=== PATIENT | male | born 1940 | race Caucasian/White ===

== ENCOUNTER 2018-10-07 09:32 | Emergency (ER) | payer MEDICARE, OTHER ==
[2018-10-07] MEDS ORDERED: Dexamethasone 4 MG/ML SDV PO ONE ×2 (11:04→11:20)
[2018-10-07] MEDS ORDERED: diphenhydrAMINE 25 MG Cap PO ONE (11:05)
--- NOTE | 2018-10-07 11:10 | EDM.PDOC ---
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 Has not taken any medications for his symptoms. Does have epi pens available if needed. Did not have Benadryl at home. Onset: Today, Sudden - Related Data Allergies Allergy/AdvReac Type Severity Reaction Status Date / Time No Known Allergies Allergy Verified 10/07/18 09:54 Home Meds: Home Meds Lisinopril/Hydrochlorothiazide [Lisinopril-Hctz 20-12.5 mg Tab] 10/07/18 [ History] Rosuvastatin [Crestor] 10/07/18 [History] Tamsulosin HCl [Flomax] 10/07/18 [History] Past Medical History Dermatologic History: Reports: Benign Melanoma - Past Surgical History Musculoskeletal Surgical History: Reports: Hip Replacement Social & Family History - Tobacco Use Smoking Status *Q: Never Smoker ED ROS GENERAL - Review of Systems Review Of Systems: ROS reveals no pertinent complaints other than HPI. ED EXAM, ANIMAL BITE - Physical Exam Exam: See Below Exam Limited By: No Limitations General Appearance: Alert, WD/WN, No Apparent Distress Head: Atraumatic Neck: Normal Inspection Respiratory/Chest: No Respiratory Distress, Lungs Clear, Normal Breath Sounds. 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 Patient given a dose of Benadryl and Decadron here, ongoing supportive care at home discussed as well as when to use the epi pen which he certainly does not meet criteria for here. Reasons to return to the ED discussed, patient agreeable and discharged in stable condition with his driving. - Orders/Labs/Meds Orders: Active Orders 24 hr Category Date Time Status dexAMETHasone [Dexamethasone] Med 10/07/18 11:04 Once 10 mg PO ONETIME ONE diphenhydrAMINE [Benadryl] Med 10/07/18 11:05 Once 25 mg PO ONETIME ONE Departure - Departure Time of Disposition: 11:30 Disposition: Home, Self-Care 01 Condition: Good Clinical Impression: Insect bite of finger with local reaction Qualifiers: Encounter type: initial encounter Qualified Code(s): S60.469A - Insect bite ( nonvenomous) of unspecified finger, initial encounter; W57.XXXA - Bitten or stung by nonvenomous insect and other nonvenomous arthropods, initial encounter - Discharge Information Instructions: Insect Bite, Adult, [id number] Referrals: PCP,None [Primary Care Provider] - Additional Instructions: This appears to be a local reaction, burr picker some Benadryl, you can take 25 mg every 4-6 hours as needed, Claritin or Zyrtec daily for 5 days. Tylenol for pain. Ice to finger, keep elevated. Return with any worsening symptoms or concerns. - My Orders Last 24 Hours: My Active Orders 10/07/18 11:04 dexAMETHasone [Dexamethasone] 10 mg PO ONETIME ONE 10/07/18 11:05 diphenhydrAMINE [Benadryl] 25 mg PO ONETIME ONE - Assessment/Plan Last 24 Hours: My Active Orders 10/07/18 11:04 dexAMETHasone [Dexamethasone] 10 mg PO ONETIME ONE 10/07/18 11:05 diphenhydrAMINE [Benadryl] 25 mg PO ONETIME ONE
== END 2018-10-07 11:48 | disposition home or self-care (01) ==
LOC: JP.ED 09:32
DX: S60.460A Insect bite (nonvenomous) of right index finger, initial encounter (principal); Z79.899 Other long term (current) drug therapy; W57.XXXA Bitten or stung by nonvenomous insect and other nonvenomous arthropods, initial encounter
CPT/HCPCS: 99282; A9270; J1100; 99283

== ENCOUNTER 2020-10-02 12:55 | Emergency (ER) | payer MEDICARE, OTHER ==
[2020-10-02] MEDS ORDERED: diphenhydrAMINE 50 MG/ML SDV IVPUSH ONE (13:44)
[2020-10-02] MEDS ORDERED: methylPREDNISolone Sodium Succinate 125 MG/2 ML SDV IVPUSH ONE (13:44)
--- NOTE | 2020-10-02 14:10 | EDM.PDOC ---
ED HPI GENERAL MEDICAL PROBLEM - General Chief Complaint: Allergic Reaction Stated Complaint: BEE STING-ALLERGIC Time Seen by Provider: 10/02/20 13:25 Source of Information: Reports: Patient, Family History Limitations: Reports: No Limitations - History of Present Illness INITIAL COMMENTS - FREE TEXT/NARRATIVE: 80-year-old male got stung by a bee on his finger, and shortly after started developing some itching on both his palms and he felt like he was developing some itching on the anterior aspect of his scalp. About 15 minutes later he felt symptoms around his waist. No shortness of breath or cough, no headache, and but he has had a serious reaction to bee stings in the past. Denies nausea or vomiting. Onset: Sudden Duration: Hour(s): (45 minutes ago) Location: Reports: Upper Extremity, Left, Upper Extremity, Right Improves with: Reports: None Associated Symptoms: Reports: Malaise. Denies: Chest Pain, Cough, Fever/Chills, Headaches, Shortness of Breath - Related Data Allergies Allergy/AdvReac Type Severity Reaction Status Date / Time No Known Allergies Allergy Verified 10/07/18 09:54 Home Meds: Home Meds Lisinopril/Hydrochlorothiazide [Lisinopril-Hctz 20-12.5 mg Tab] 1 tab PO DAILY 10/07/18 [History] Rosuvastatin [Crestor] 10 mg PO DAILY 10/07/18 [History] Tamsulosin HCl [Flomax] 0.4 mg PO DAILY 10/07/18 [History] Niacinamide [Niacin] 500 mg PO BID 10/02/20 [History] Past Medical History HEENT History: Reports: Impaired Vision Dermatologic History: Reports: Benign Melanoma - Infectious Disease History Infectious Disease History: Reports: Chicken Pox, Measles, Mumps - Past Surgical History GI Surgical History: Reports: Cholecystectomy Musculoskeletal Surgical History: Reports: Hip Replacement Social & Family History - Tobacco Use Tobacco Use Status *Q: Never Tobacco User - Caffeine Use Caffeine Use: Reports: Coffee - Recreational Drug Use Recreational Drug Use: No ED ROS ALLERGIC REACTION - Review of Systems Review Of Systems: See Below Constitutional: Reports: Malaise. Denies: Fever, Chills HEENT: Reports: Other (Slight sensation of his tongue swelling over the past 10 minutes) Respiratory: Denies: Shortness of Breath, Cough Cardiovascular: Denies: Chest Pain GI/Abdominal: Denies: Nausea, Vomiting Skin: Reports: Other (Developed erythema on his palms, feels itchy around his waist in the anterior aspect of his hairline of the scalp) Neurological: Denies: Dizziness, Headache, Weakness ED EXAM GENERAL NO PERIP PULSE - Physical Exam Exam: See Below Exam Limited By: No Limitations General Appearance: Alert, No Apparent Distress Eye Exam: Bilateral Eye: Normal Inspection Throat/Mouth: Other (Minimal swelling of the tongue is present, no mucosal swelling) Head: Atraumatic Neck: Supple, Non-Tender Respiratory/Chest: No Respiratory Distress, Lungs Clear Cardiovascular: Regular Rate, Rhythm Extremities: Normal Inspection. No: Pedal Edema Neurological: Alert, Oriented Psychiatric: Normal Affect, Normal Mood Skin Exam: Erythema, Other (Blanching erythema, hive-like lesions around the entire waist and groin, hyper erythema is present on the palms) Course - Vital Signs Last Recorded V/S: Last Vital Signs Temp 98.1 F 10/02/20 13:24 Pulse 98 10/02/20 13:24 Resp 16 10/02/20 13:24 BP 145/62 H 10/02/20 13:24 Pulse Ox 95 10/02/20 13:24 - Orders/Labs/Meds Meds: Medications Discontinued Medications Generic Name Dose Route Start Last Admin Trade Name Marcell PRJohn Paul Reason Stop Dose Admin Diphenhydramine HCl 50 mg 10/02/20 13:44 10/02/20 13:53 Diphenhydramine 50 Mg/Ml Sdv IVPUSH 10/02/20 13:45 50 mg ONETIME ONE Administration Methylprednisolone Sodium Succinate 125 mg 10/02/20 13:44 10/02/20 13:53 Methylprednisolone Sodium Succinate 125 Mg/2 Ml Sdv IVPUSH 10/02/20 13:45 125 mg ONETIME ONE Administration - Re-Assessments/Exams Free Text/Narrative Re-Assessment/Exam: 10/02/20 14:09 This patient is having a systemic reaction to bee stings. An IV was started and he was given 50 mg of IV Benadryl and 125 mg of IV Solu-Medrol. His reaction was not significant enough to warrant epi at this time. 10/02/20 14:42 1 hour after the medications, the patient was stable, becoming asymptomatic and had no more itching. Still just slight erythema of the palms and waist. He will be discharged and can take Benadryl every 3-4 hours orally as needed and return if problems. Departure - Departure Time of Disposition: 14:53 Disposition: Home, Self-Care 01 Clinical Impression: Allergy to bee sting - Discharge Information Instructions: Allergies, Adult, [id number] Referrals: PCP,None [Primary Care Provider] - Forms: ED Department Discharge Care Plan Goals: Use EpiPen in the future if stung by bee and start develop a systemic reaction. Benadryl can be repeated today every 3-4 hours if needed for any persistent rash or itching, and return anytime if worsening or concerns. Sepsis Event Note (ED) - Evaluation Sepsis Screening Result: No Definite Risk
== END 2020-10-02 14:45 | disposition home or self-care (01) ==
LOC: JP.ED 12:55
DX: T63.441A Toxic effect of venom of bees, accidental (unintentional), initial encounter (principal)
CPT/HCPCS: 96374; 96375; 99282; J1200; J2930

== ENCOUNTER 2020-12-07 13:09 | Emergency (ER) | payer MEDICARE, OTHER ==
[2020-12-07] MEDS ORDERED: diphenhydrAMINE 25 MG Cap PO ONE (13:32)
--- NOTE | 2020-12-07 13:34 | EDM.PDOC ---
ED HPI GENERAL MEDICAL PROBLEM - General Chief Complaint: Bite:Animal, Insect Stated Complaint: BITE BY A BLUE JACKET? Time Seen by Provider: 12/07/20 13:30 Source of Information: Reports: Patient, Family, RN Notes Reviewed History Limitations: Reports: No Limitations - History of Present Illness INITIAL COMMENTS - FREE TEXT/NARRATIVE: 80-year-old gentleman presents emergency department today following a bee sting, he has had pretty severe reaction in the past does have his own EpiPen he has not given himself his EpiPen today so far just prior to presentation emergency department he is only had local reaction at the wrist. No shortness of breath no throat swelling Left Wrist Pain Score (Numeric/FACES): 2 - Related Data Allergies Allergy/AdvReac Type Severity Reaction Status Date / Time bee venom protein (honey bee) Allergy Anaphylactic Verified 12/07/20 13:24 Shock Home Meds: Home Meds Lisinopril/Hydrochlorothiazide [Lisinopril-Hctz 20-12.5 mg Tab] 1 tab PO DAILY 10/07/18 [History] Rosuvastatin [Crestor] 10 mg PO DAILY 10/07/18 [History] Tamsulosin HCl [Flomax] 0.4 mg PO DAILY 10/07/18 [History] Niacinamide [Niacin] 500 mg PO BID 10/02/20 [History] Past Medical History HEENT History: Reports: Impaired Vision Cardiovascular History: Reports: Hypertension Dermatologic History: Reports: Benign Melanoma - Infectious Disease History Infectious Disease History: Reports: Chicken Pox, Measles, Mumps - Past Surgical History GI Surgical History: Reports: Cholecystectomy Musculoskeletal Surgical History: Reports: Hip Replacement Other Musculoskeletal Surgeries/Procedures:: x2 Social & Family History - Tobacco Use Tobacco Use Status *Q: Former Tobacco User Used Tobacco, but Quit: Yes Month/Year Tobacco Last Used: 10 - Caffeine Use Caffeine Use: Reports: Coffee - Alcohol Use Days Per Week of Alcohol Use: 2 Number of Drinks Per Day: 2 Total Drinks Per Week: 4 - Recreational Drug Use Recreational Drug Use: No ED ROS GENERAL - Review of Systems Review Of Systems: See Below Constitutional: Reports: No Symptoms HEENT: Reports: No Symptoms Respiratory: Reports: No Symptoms Cardiovascular: Reports: No Symptoms Skin: Reports: Rash, Wound ED EXAM, ANIMAL BITE - Physical Exam Exam: See Below Text/Narrative:: Examination the rest there is an area about the size of a tennis ball it is warm red little bit of edema is not present there is a small wound consistent with a bite alma in the center Exam Limited By: No Limitations General Appearance: Alert, WD/WN, No Apparent Distress Throat/Mouth: Normal Inspection, Normal Lips, Normal Teeth, Normal Gums, Normal Oropharynx, Normal Voice, No Airway Compromise Respiratory/Chest: No Respiratory Distress, Lungs Clear, Normal Breath Sounds, No Accessory Muscle Use, Chest Non-Tender Cardiovascular: Regular Rate, Rhythm, No Murmur Course - Vital Signs Last Recorded V/S: Last Vital Signs Temp 97.9 F 12/07/20 13:21 Pulse 89 12/07/20 13:21 Resp 18 12/07/20 13:21 BP 149/75 H 12/07/20 13:21 Pulse Ox 100 12/07/20 13:18 - Orders/Labs/Meds Meds: Medications Discontinued Medications Generic Name Dose Route Start Last Admin Trade Name Freq PRN Reason Stop Dose Admin Diphenhydramine HCl 50 mg 12/07/20 13:32 12/07/20 13:37 Diphenhydramine 25 Mg Cap PO 12/07/20 13:33 50 mg ONETIME ONE Administration Departure - Departure Time of Disposition: 14:11 Disposition: Home, Self-Care 01 Condition: Fair Clinical Impression: Insect bite of wrist, right Qualifiers: Encounter type: initial encounter Qualified Code(s): S60.861A - Insect bite (nonvenomous) of right wrist, initial encounter; W57.XXXA - Bitten or stung by nonvenomous insect and other nonvenomous arthropods, initial encounter - Discharge Information Instructions: Insect Bite, Adult Referrals: PCP,None [Primary Care Provider] - Forms: ED Department Discharge Additional Instructions: Use Benadryl as needed for symptomatic relief, continue to carry your EpiPen please followup with your primary care provider in 3-5 days if not better, please call return to the emergency department with worsening of symptoms., Sepsis Event Note (ED) - Focused Exam Vital Signs: Vital Signs Temp Pulse Resp BP Pulse Ox 12/07/20 13:21 97.9 F 89 18 149/75 H 12/07/20 13:18 97.9 F 89 16 149/75 H 100 - Assessment/Plan Plan: Assessment Acuity = acute Site and laterality = insect bite wrist Etiology = unknown possibly hornet or Bee Manifestations = none Location of injury = Home Lab values = none Plan Good improvement with Benadryl provided did not have to use his EpiPen, he will follow-up with his primary care as needed This note was dictated using [employer] voice recognition software please call with any questions on syntax or grammar.
== END 2020-12-07 14:21 | disposition home or self-care (01) ==
LOC: JP.ED 13:09
DX: S60.861A Insect bite (nonvenomous) of right wrist, initial encounter (principal); I10 Essential (primary) hypertension; Z79.899 Other long term (current) drug therapy; Z87.891 Personal history of nicotine dependence; W57.XXXA Bitten or stung by nonvenomous insect and other nonvenomous arthropods, initial encounter
CPT/HCPCS: 99282; A9270